=== PATIENT | female | born 1985 | race Caucasian/White ===

== ENCOUNTER 2016-07-19 16:56 | Emergency (ER) | payer BC, OTHER ==
[2016-07-19 17:03] VITALS: TEMP 98.3; BMI 30.9
--- NOTE | 2016-07-19 17:04 | PDOC ---
Rapid Medical Evaluation Medical Evaluation: Allergies Allergy/AdvReac Type Severity Reaction Status Date / Time No Known Allergies Allergy Verified 07/19/16 16:59 Vital Signs Temp Pulse Resp BP Pulse Ox 98.3 F 119 H 17 135/86 99 07/19/16 17:00 07/19/16 17:00 07/19/16 17:00 07/19/16 17:00 07/19/16 17:00 07/19/16 17:03 I have performed a brief in-person evaluation of this patient. The patient presents with a chief complaint of: healthy 30y/o F h/o kidney stone with suprapubic, L flank pain since this morning and gross hematuria. Pertinent physical exam findings: suprapubic discomfort no fever I have ordered the following: cbc/comp ua/urine cx renal sono The patient will proceed to the ED for further evaluation. <Velasquez Morrison - Last Filed: 07/19/16 17:03> Medical Evaluation: Allergies Allergy/AdvReac Type Severity Reaction Status Date / Time No Known Allergies Allergy Verified 07/19/16 16:59 Vital Signs Temp Pulse Resp BP Pulse Ox 98.3 F 80 18 130/70 100 07/19/16 17:00 07/19/16 20:55 07/19/16 20:55 07/19/16 20:55 07/19/16 20:55 <Khushboo Garcia - Last Filed: 07/19/16 21:03> Time Seen by Provider: 07/19/16 16:59
[2016-07-19 17:31] LABS: BASOPHIL 0.9 % (0-2.0); EOSINOPHIL 2.5 % (0-4.5); MCH 30.1 pg (25.7-33.7); MCHC 33.6 g/dl (32.0-36.0); MEAN CELL VOLUME 89.4 fl (80-96); MEAN PLT VOLUME 10.6 fl (7.5-11.1); NEUTROPHILS 52.2 % (42.8-82.8); PLATELET COUNT 210 K/MM3 (134-434); RDW 14.4 % (11.6-15.6); WHITE BLOOD COUNT 8.6 K/mm3 (4.0-10.0)
[2016-07-19 17:34] LABS: URINE APPEARANCE CLOUDY; URINE BILIRUBIN NEGATIVE (NEGATIVE); URINE COLOR DKYELLOW; URINE GLUCOSE (UA) NEGATIVE (NEGATIVE); URINE KETONE NEGATIVE (NEGATIVE); URINE LEUK ESTERASE NEGATIVE (NEGATIVE); URINE NITRITE NEGATIVE (NEGATIVE); URINE UROBILINOGEN NEGATIVE E.U./dl (0.2-1.0)
[2016-07-19 17:36] LABS: URINE BLOOD 3+ (NEGATIVE); URINE PROTEIN 2+ (NEGATIVE)
[2016-07-19 17:43] LABS: URINE MUCUS FEW; URINE RBC 6191 /hpf (0-3); URINE WBC 92 /hpf (3-5); YEAST RARE
[2016-07-19 17:56] LABS: ALBUMIN 4.1 g/dl (3.4-5.0); ANION GAP 10 (8-16); BILIRUBIN,TOTAL 0.2 mg/dL (0.2-1.0); CALCIUM 9.1 mg/dL (8.5-10.1); CO2 25 mmol/L (21-32); CREATININE 0.5 mg/dL (0.55-1.02); GLUCOSE,RANDOM 82 mg/dL (74-106); SGOT/AST 9 U/L (15-37); SGPT/ALT 18 U/L (12-78); TOT PROT 7.3 g/dl (6.4-8.2)
[2016-07-19 17:57] LABS: ALK PHOS 76 U/L (45-117)
[2016-07-19] MEDS ORDERED: KETOROLAC TROMETHAMINE 60 MG/2 ML VIAL IM ONE (18:39)
[2016-07-19] MEDS ORDERED: KETOROLAC TROMETHAMINE 60 MG/2 ML VIAL ONE (18:40)
[2016-07-19] MEDS ORDERED: OXYCODONE/APAP 5/325MG COMBO TABLET PO ONE (20:45)
[2016-07-19] MEDS ORDERED: SULFAMETHOXAZOLE/TRIMETHOPRIM 800MG/160MG D.S. TABLET PO ONE (20:45)
[2016-07-19] MEDS ORDERED: OXYCODONE/APAP 5/325MG COMBO TABLET ONE (20:46)
[2016-07-19] MEDS ORDERED: SULFAMETHOXAZOLE/TRIMETHOPRIM 800MG/160MG D.S. TABLET ONE (20:46)
[2016-07-19 20:56] VITALS: BP 130/70; PULSE 80
--- NOTE | 2016-07-19 21:03 | PDOC ---
History of Present Illness <Khushboo Garcia - Last Filed: 07/19/16 21:03> - History of Present Illness Initial Comments: 07/19/16 21:05 The patient is a 30 year old female with a past medical hx of kidney stones who presents to the ED complaining of suprapubic and left flank pain since this morning. The patient reports associated hematuria. The patient denies any fever , chills, nausea, vomiting, and diarrhea. The patient has no further complaints at this time. Allergies: None Known Past Surgical History: Caesarian Section. Social History: She denies tobacco, ETOH and illicit drug use. <Diana Jackson - Last Filed: 07/19/16 21:08> - General Chief Complaint: Pain, Acute Stated Complaint: HEMATURIA Time Seen by Provider: 07/19/16 16:59 Past History - Past Medical History Kidney Stones: Yes (X1) - Reproductive History Is Patient Now?: No (#): 2 Para: 2 Cervical CA: No Dysfunctional Uterine Bleeding: No Ectopic : No Endometrial CA: No Polycystic Ovaries: No Therapeutic (s) & number: No Tubal Ligation: No Spontaneous : 0 - Psycho/Social/Smoking Cessation Hx Anxiety: No Suicidal Ideation: No Smoking History: Current every day smoker Have you smoked in the past 12 months: Yes Number of Cigarettes Smoked Daily: 12 Information on smoking cessation initiated: No 'Breaking Loose' booklet given: 01/10/16 Hx Alcohol Use: No Drug/Substance Use Hx: No Substance Use Type: None <Khushboo Garcia - Last Filed: 07/19/16 21:03> <Diana Jackson - Last Filed: 07/19/16 21:08> - Past Medical History Allergies/Adverse Reactions: Allergies Allergy/AdvReac Type Severity Reaction Status Date / Time No Known Allergies Allergy Verified 07/19/16 16:59 Home Medications: Ambulatory Orders Methocarbamol [Robaxin -] 750 mg PO BID #20 tablet 01/10/16 Ibuprofen [Motrin -] 400 mg PO QID PRN #20 tablet 07/19/16 Sulfamethoxazole/Trimethoprim [Bactrim Ds -] 1 tab PO BID #14 tablet 07/19/16 Review of Systems - Review of Systems Able to Perform ROS?: Yes Comments:: 07/19/16 21:05 CONSTITUTIONAL: Absent: fever, chills, diaphoresis, generalized weakness, malaise, loss of appetite HEENT: Absent: rhinorrhea, nasal congestion, throat pain, throat swelling, difficulty swallowing, mouth swelling, ear pain, eye pain, visual Changes CARDIOVASCULAR: Absent: chest pain, syncope, palpitations, irregular heart rate, lightheadedness , peripheral edema RESPIRATORY: Absent: cough, shortness of breath, dyspnea with exertion, orthopnea, wheezing, stridor, hemoptysis GASTROINTESTINAL: +Suprapubic pain. Absent: abdominal distension, nausea, vomiting, diarrhea, constipation, melena, hematochezia GENITOURINARY: +Left flank pain, hematuria. Absent: dysuria, frequency, urgency, hesitancy, genital pain MUSCULOSKELETAL: Absent: myalgia, arthralgia, joint swelling SKIN: Absent: rash, itching, pallor NEUROLOGIC: Absent: headache, focal weakness or paresthesias, dizziness, unsteady gait, seizure, mental status changes, bladder or bowel incontinence PSYCHIATRIC: Absent: anxiety, depression, suicidal or homicidal ideation, hallucinations. <Diana Jackson - Last Filed: 07/19/16 21:08> *Physical Exam - Vital Signs Last Vital Signs Temp Pulse Resp BP Pulse Ox 98.3 F 80 18 130/70 100 07/19/16 17:00 07/19/16 20:55 07/19/16 20:55 07/19/16 20:55 07/19/16 20:55 <Khushboo Garcia - Last Filed: 07/19/16 21:03> - Vital Signs Last Vital Signs Temp Pulse Resp BP Pulse Ox 98.3 F 80 18 130/70 100 07/19/16 17:00 07/19/16 20:55 07/19/16 20:55 07/19/16 20:55 07/19/16 20:55 - Physical Exam Comments: 07/19/16 21:06 GENERAL: Well developed, well nourished. Awake and alert. No acute distress. HEENT: Normocephalic, atraumatic. PERRLA, EOMI. No conjunctival pallor. Sclera are non- icteric. Moist mucous membranes. Oropharynx is clear. NECK: Supple. Full ROM. No JVD. Carotid pulses 2+ and symmetric, without bruits. No thyromegaly. No lymphadenopathy. CARDIOVASCULAR: Regular rate and rhythm. No murmurs, rubs, or gallops. Distal pulses are 2+ and symmetric. PULMONARY: No evidence of respiratory distress. Lungs clear to auscultation bilaterally. No wheezing, rales or rhonchi. ABDOMINAL: +Suprapubic discomfort. Soft. Non-distended. No rebound or guarding. No organomegaly. Normoactive bowel sounds. MUSCULOSKELETAL Normal range of motion at all joints. No bony deformities or tenderness. No CVA tenderness. EXTREMITIES: No cyanosis. No clubbing. No edema. No calf tenderness. SKIN: Warm and dry. Normal capillary refill. No rashes. No jaundice. NEUROLOGICAL: Alert, awake, appropriate. Cranial nerves 2-12 intact. No deficits to light touch and temperature in face, upper extremities and lower extremities. PSYCHIATRIC: Cooperative. Good eye contact. Appropriate mood and affect. <Diana Jackson - Last Filed: 07/19/16 21:08> ED Treatment Course - LABORATORY CBC & Chemistry Diagram: 07/19/16 17:20 07/19/16 17:20 - ADDITIONAL ORDERS Additional order review: Laboratory Results 07/19/16 07/19/16 17:20 17:20 Sodium 142 Potassium 3.7 Chloride 107 Carbon Dioxide 25 Anion Gap 10 BUN 13 Creatinine 0.5 L D Creat Clearance w eGFR > 60 Random Glucose 82 Calcium 9.1 Total Bilirubin 0.2 AST 9 L ALT 18 Alkaline Phosphatase 76 D Total Protein 7.3 Albumin 4.1 Urine Color Dkyellow Urine Appearance Cloudy Urine pH 6.0 Ur Specific [place] 1.025 Urine Protein 2+ H Urine Glucose (UA) Negative Urine Ketones Negative Urine Blood 3+ H Urine Nitrite Negative Urine Bilirubin Negative Urine Urobilinogen Negative Ur Leukocyte Esterase Negative Urine RBC 6191 Urine WBC 92 Ur Epithelial Cells Rare Urine Mucus Few Urine Yeast Rare Urine HCG, Qual Negative 07/19/16 17:20 RBC 4.45 MCV 89.4 MCHC 33.6 RDW 14.4 MPV 10.6 Neutrophils % 52.2 Lymphocytes % 39.5 Monocytes % 4.9 Eosinophils % 2.5 Basophils % 0.9 - Medications Given in the ED: ED Medications Discontinued Medications Generic Name Dose Route Start Last Admin Trade Name Freq PRN Reason Stop Dose Admin Ketorolac Tromethamine 60 mg 07/19/16 18:39 07/19/16 18:50 Toradol Injection - IM 07/19/16 18:40 60 mg ONCE ONE Administration Oxycodone/Acetaminophen 1 combo 07/19/16 20:45 07/19/16 20:49 Percocet 5/325 - PO 07/19/16 20:46 1 combo ONCE ONE Administration Trimethoprim/Sulfamethoxazole 1 each 07/19/16 20:45 07/19/16 20:48 Bactrim Ds - PO 07/19/16 20:46 1 each ONCE ONE Administration <Khushboo Garcia - Last Filed: 07/19/16 21:03> - LABORATORY CBC & Chemistry Diagram: 07/19/16 17:20 07/19/16 17:20 - ADDITIONAL ORDERS Additional order review: Laboratory Results 07/19/16 07/19/16 17:20 17:20 Sodium 142 Potassium 3.7 Chloride 107 Carbon Dioxide 25 Anion Gap 10 BUN 13 Creatinine 0.5 L D Creat Clearance w eGFR > 60 Random Glucose 82 Calcium 9.1 Total Bilirubin 0.2 AST 9 L ALT 18 Alkaline Phosphatase 76 D Total Protein 7.3 Albumin 4.1 Urine Color Dkyellow Urine Appearance Cloudy Urine pH 6.0 Ur Specific [place] 1.025 Urine Protein 2+ H Urine Glucose (UA) Negative Urine Ketones Negative Urine Blood 3+ H Urine Nitrite Negative Urine Bilirubin Negative Urine Urobilinogen Negative Ur Leukocyte Esterase Negative Urine RBC 6191 Urine WBC 92 Ur Epithelial Cells Rare Urine Mucus Few Urine Yeast Rare Urine HCG, Qual Negative 07/19/16 17:20 RBC 4.45 MCV 89.4 MCHC 33.6 RDW 14.4 MPV 10.6 Neutrophils % 52.2 Lymphocytes % 39.5 Monocytes % 4.9 Eosinophils % 2.5 Basophils % 0.9 - RADIOLOGY Radiograph Interpretation: 07/19/16 21:08 Renal ultrasound Clinical information: flank pain, hematuria There is no hydronephrosis. A nonobstructing 0.8 cm right renal lower pole calculus is noted. This calculus has apparently increased in size in comparison to a CT study of 07/14/2014, previously measuring 0.4 cm. No definite left renal calculus is identified within the limitations of sonography. A 0.1 to 0.2 cm nonobstructing left renal calculus noted on the 2014 CT study cannot be appreciated on the current exam. The kidneys appear unremarkable in position, cortical thickness, echogenicity and size. Each kidney measures approximately 10 cm in length. No obvious mass lesion is identified. Impression: No hydronephrosis is identified involving either kidney. A 0.8 cm nonobstructing right renal calculus is visualized as discussed. Reported By: Magnus Davila MD 07/19/16 7560 - Medications Given in the ED: ED Medications Discontinued Medications Generic Name Dose Route Start Last Admin Trade Name Zechariah PRN Reason Stop Dose Admin Ketorolac Tromethamine 60 mg 07/19/16 18:39 07/19/16 18:50 Toradol Injection - IM 07/19/16 18:40 60 mg ONCE ONE Administration Oxycodone/Acetaminophen 1 combo 07/19/16 20:45 07/19/16 20:49 Percocet 5/325 - PO 07/19/16 20:46 1 combo ONCE ONE Administration Trimethoprim/Sulfamethoxazole 1 each 07/19/16 20:45 07/19/16 20:48 Bactrim Ds - PO 07/19/16 20:46 1 each ONCE ONE Administration <Diana Jackson - Last Filed: 07/19/16 21:08> *DC/Admit/Observation/Transfer <Khushboo Garcia - Last Filed: 07/19/16 21:03> - Attestations Scribe Attestion: 07/19/16 21:06 Documentation prepared by Diana Jackson, acting as medical authorization specialist for Khushboo Garcia MD/DO. <Diana Jackson - Last Filed: 07/19/16 21:08> Diagnosis at time of Disposition: Hematuria, Hemorrhagic cystitis - Discharge Dispostion Disposition: HOME Condition at time of disposition: Stable - Prescriptions Prescriptions: Sulfamethoxazole/Trimethoprim [Bactrim Ds -] 1 tab PO BID #14 tablet Ibuprofen [Motrin -] 400 mg PO QID PRN #20 tablet PRN Reason: Pain - Patient Instructions Printed Discharge Instructions: DI for Urinary Tract Infection (UTI), DI for Hematuria Additional Instructions: please pick up man your prescription at your [facility] pharmacy Take motrin for pain
== END 2016-07-19 21:08 | disposition home or self-care (01) ==
LOC: JER 16:56
PROC: 3E0233Z Introduction of Anti-inflammatory into Muscle, Percutaneous Approach (ICD-10-PCS; principal; 2016-07-19)
DX: N30.01 Acute cystitis with hematuria (principal); F17.210 Nicotine dependence, cigarettes, uncomplicated
CPT/HCPCS: 36415; 76775-TC; 80053; 81003; 81015; 84703; 85025; 87086; 99281-25

== ENCOUNTER 2017-01-15 08:35 | Emergency (ER) | payer OTHER ==
[2017-01-15 08:42] VITALS: TEMP 98.9; BMI 31.7
--- NOTE | 2017-01-15 09:16 | PDOC ---
Attending Attestation - Resident Resident Name: Jose Santana - ED Attending Attestation I have performed the following: I have examined & evaluated the patient, The case was reviewed & discussed with the resident, I agree w/resident's findings & plan, Exceptions are as noted - HPI HPI: 01/15/17 09:32 Epigastric Pain for about a week - Physicial Exam PE: 01/15/17 09:32 VSS/NAD Abdomen Soft and Benign - Medical Decision Making 01/15/17 09:[address] Santana Assessment and Plan
[2017-01-15] MEDS ORDERED: ONDANSETRON 4 MG/2 ML VIAL IVPB ONE (09:23)
[2017-01-15] MEDS ORDERED: SODIUM CHLORIDE 1,000 ML IV STA (09:23)
[2017-01-15] MEDS ORDERED: FAMOTIDINE 20 MG/50 ML IVPB 50 ML IVPB ONE ×2 (09:23→09:34)
[2017-01-15] MEDS ORDERED: MAG HYDROX/AL HYDROX/SIMETH 30 ML UNIT-DOSE CUP PO ONE (09:24)
[2017-01-15] MEDS ORDERED: PANTOPRAZOLE 40 MG TABLET (FP) PO ONE (09:26)
[2017-01-15] MEDS ORDERED: MAG HYDROX/AL HYDROX/SIMETH 30 ML UNIT-DOSE CUP ONE (09:33)
[2017-01-15] MEDS ORDERED: PANTOPRAZOLE 40 MG TABLET (FP) ONE (09:33)
--- NOTE | 2017-01-15 09:33 | PDOC ---
History of Present Illness - General Chief Complaint: Pain Stated Complaint: ABD PAIN Time Seen by Provider: 01/15/17 09:06 History Source: Patient Exam Limitations: No Limitations - History of Present Illness Initial Comments: 01/15/17 09:28 Patient is a 31F with history of kidney stones s/p stenting in 09/05 here today complaining of epigastric pain for the past week. She describes it as a burning pain that radiates into her chest. The pain is constant and doesn't change with PO intake. She reports associated nausea and chills. She denies fevers and vomiting. Movement doesn't make the pain worse. Smokes 1/2 ppd. Denies etoh and illicits. Past History - Past Medical History Allergies/Adverse Reactions: Allergies Allergy/AdvReac Type Severity Reaction Status Date / Time No Known Allergies Allergy Verified 01/15/17 08:39 Home Medications: Ambulatory Orders NK [No Known Home Medication] 01/15/17 Kidney Stones: Yes (X1) - Reproductive History Is Patient Now?: No (#): 2 Para: 2 Cervical CA: No Dysfunctional Uterine Bleeding: No Ectopic : No Endometrial CA: No Polycystic Ovaries: No Therapeutic (s) & number: No Tubal Ligation: No Spontaneous : 0 - Psycho/Social/Smoking Cessation Hx Anxiety: No Suicidal Ideation: No Smoking History: Current every day smoker Have you smoked in the past 12 months: Yes Number of Cigarettes Smoked Daily: 10 Information on smoking cessation initiated: Yes 'Breaking Loose' booklet given: 01/15/17 Hx Alcohol Use: No Drug/Substance Use Hx: No Substance Use Type: None Review of Systems - Review of Systems Comments:: 01/15/17 09:33 GENERAL/CONSTITUTIONAL: No fever. Positive for chills. HEAD, EYES, EARS, NOSE AND THROAT: No change in vision. No ear pain or discharge. No sore throat. CARDIOVASCULAR: Burning substernal chest pain. Negative for shortness of breath RESPIRATORY: No cough, wheezing, or hemoptysis. GASTROINTESTINAL: Positive for nausea and one episode of diarrhea. Negative for vomiting and constipation. GENITOURINARY: No dysuria, frequency, or change in urination. SKIN: No rash NEUROLOGIC: No headache, vertigo, loss of consciousness, or change in strength/ sensation. ENDOCRINE: No increased thirst. No abnormal weight change ALLERGIC/IMMUNOLOGIC: No hives or skin allergy. *Physical Exam - Vital Signs Last Vital Signs Temp Pulse Resp BP Pulse Ox 98.9 F 87 20 132/66 98 01/15/17 08:37 01/15/17 08:37 01/15/17 08:37 01/15/17 08:37 01/15/17 08:37 - Physical Exam Comments: 01/15/17 09:34 GENERAL: Awake, alert, and fully oriented, in no acute distress HEAD: No signs of trauma, normocephalic, atraumatic EYES: PERRLA, EOMI, sclera anicteric, conjunctiva clear ENT: Auricles normal inspection, hearing grossly normal, nares patent, oropharynx clear without exudates. Moist mucosa NECK: Normal ROM, supple, no lymphadenopathy, JVD, or masses LUNGS: No distress, speaks full sentences, clear to auscultation bilaterally HEART: Regular rate and rhythm, normal S1 and S2, no murmurs, rubs or gallops, peripheral pulses normal and equal bilaterally. ABDOMEN: Tender in epigastric area. No guarding, no rebound. No masses EXTREMITIES: Normal inspection, Normal range of motion, no edema. No clubbing or cyanosis. NEUROLOGICAL: Cranial nerves II through XII grossly intact. Normal speech, no focal sensorimotor deficits SKIN: Warm, Dry, normal turgor, no rashes or lesions noted. ED Treatment Course - LABORATORY CBC & Chemistry Diagram: 01/15/17 09:45 01/15/17 09:45 Medical Decision Making - Medical Decision Making 01/15/17 09:35 Patient is a 31F with history of kidney stones here today with a burning upper abdominal pain radiating to the substernal portion of her chest. Abdominal exam reassuring, patient moving around room comfortably. Vital signs stable and normal. DDx includes, but is not limited to: gastritis, GERD, gastric ulcer, cholecystitis. Will evaluate with CBC, CMP, lipase, ua, and upreg. Will treat with zofran, pepcid, mylanta, protonix and 1L NS. 01/15/17 10:07 Pain and nausea improved with medications. Labs pending. 01/15/17 10:54 CMP normal. Lipase neg. UA neg. Upreg neg. Will discharge home with PCP follow up. Given return precautions, patient verbalized understanding. Instructed to take omeprazole OTC for 2 weeks. *DC/Admit/Observation/Transfer Diagnosis at time of Disposition: Abdominal pain Qualifiers: Abdominal location: epigastric Qualified Code(s): R10.13 - Epigastric pain - Discharge Dispostion Disposition: HOME Admit: No - Referrals Referrals: STAFF,NOT ON [Primary Care Provider] - - Patient Instructions Printed Discharge Instructions: DI for Abdominal Pain-Adult Additional Instructions: Please take omeprazole 20mg once a day. It's available as a generic drug over the counter at any pharmacy. Take for 2 weeks max. - Attestations Physician Attestion: 01/15/17 10:08 I, Dr. Jose Santana, attest that this document has been prepared under my direction and personally reviewed by me in its entirety. I further attest, that it accurately reflects all work, treatment, procedures and medical decision -making performed by me.
[2017-01-15] MEDS ORDERED: ONDANSETRON 4 MG/2 ML VIAL ONE (09:34)
[2017-01-15 09:56] LABS: MCH 30.3 pg (25.7-33.7); MCHC 33.2 g/dl (32.0-36.0); MEAN CELL VOLUME 91.3 fl (80-96); MEAN PLT VOLUME 10.2 fl (7.5-11.1); NEUTROPHILS 63.4 % (42.8-82.8); PLATELET COUNT 186 K/MM3 (134-434); RDW 14.3 % (11.6-15.6); WHITE BLOOD COUNT 6.8 K/mm3 (4.0-10.0)
[2017-01-15 10:18] LABS: ALBUMIN 3.9 g/dl (3.4-5.0); ANION GAP 4 (8-16); BILIRUBIN,TOTAL 0.4 mg/dL (0.2-1.0); CALCIUM 8.9 mg/dL (8.5-10.1); CO2 27 mmol/L (21-32); CREATININE 0.5 mg/dL (0.55-1.02); SGOT/AST 11 U/L (15-37); SGPT/ALT 19 U/L (12-78); TOT PROT 7.2 g/dl (6.4-8.2)
[2017-01-15 10:19] LABS: ALK PHOS 59 U/L (45-117)
[2017-01-15 10:23] LABS: URINE APPEARANCE CLEAR; URINE BILIRUBIN NEGATIVE (NEGATIVE); URINE BLOOD NEGATIVE (NEGATIVE); URINE COLOR LTYELLOW; URINE GLUCOSE (UA) NEGATIVE (NEGATIVE); URINE KETONE NEGATIVE (NEGATIVE); URINE LEUK ESTERASE NEGATIVE (NEGATIVE); URINE NITRITE NEGATIVE (NEGATIVE); URINE PROTEIN NEGATIVE (NEGATIVE); URINE UROBILINOGEN NEGATIVE mg/dL (0.2-1.0)
[2017-01-15 10:25] LABS: GLUCOSE,RANDOM 89 mg/dL (74-106)
[2017-01-15 11:02] VITALS: BP 114/68; PULSE 70
== END 2017-01-15 11:02 | disposition home or self-care (01) ==
LOC: JER 08:35
PROC: 3E033GC Introduction of Other Therapeutic Substance into Peripheral Vein, Percutaneous Approach (ICD-10-PCS; principal; 2017-01-15)
PROC: 3E033GC Introduction of Other Therapeutic Substance into Peripheral Vein, Percutaneous Approach (ICD-10-PCS; 2017-01-15)
DX: Z87.442 Personal history of urinary calculi (principal)
CPT/HCPCS: 36415; 80053; 81003; 83690; 84703; 85025; 99283-25